=== PATIENT | female | born 1945 ===

== ENCOUNTER → 2021-01-29 18:31 | Outpatient (ROUT) | payer OTHER, SELFPAY ==
[2021-01-29 19:23] LABS: Aspartate Aminotransferase 31 IU/L (14-36); Cholesterol 156 mg/dL (140-199); HDL Cholesterol 65 mg/dL (40-60); LDL Cholesterol Calculated 70 mg/dL (<100); Triglycerides 104 mg/dL (35-150)
== END ==
PROVIDERS: Visit Provider Internal Medicine
DX: E78.2 Mixed hyperlipidemia (principal)
CPT/HCPCS: 80061; 84450